=== PATIENT | female | born 2000 | race Caucasian/White ===

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

== ENCOUNTER → 2020-01-05 08:34 | Outpatient (CLI) | payer MEDICAID, SELFPAY ==
[2019-12-08 09:15] VITALS: BMI 28.7
[2020-01-05 09:00] LABS: Absolute Lymphocyte Count 2.59 X10^3/uL (0.83-4.51); Absolute Neutrophil Count 10.1 X10^3/uL (2.0-7.7); Basophil# 0.05 X10^3/uL; Basophil% 0.4 % (0-1); Eosinophil# 0.13 X10^3/uL; Eosinophils% 0.9 % (0-5); Hematocrit 35.3 % (37-47); Hemoglobin 11.6 g/dL (12.0-15.0); Lymphocyte # 2.59 X10^3/ul (4.0); Lymphocyte % 18.2 % (19-41); Mean Corp Hgb Conc 32.9 g/dL (32-36); Mean Corpuscular Hgb 29.7 pg (27.0-32.0); Mean Corpuscular Volume 90.5 fL (81-99); Mean Platelet Vol. 8.9 fl (6.2-12.0); Monocyte# 1.08 X10^3/uL; Monocyte% 7.6 % (0-10); NRBC Flagged by Analyzer 0 % (0-5); Neutrophil # 10.13 X10^3/uL (2.7-7.7); Neutrophil % 71.1 % (47-70); Platelet Count 210 K/mm3 (150-450); RBC Distribution Width SD 39.3 fl (35.1-43.9); White Blood Count 14.2 K/mm3 (4.4-11.0)
[2020-01-05 09:34] LABS: Glucose Challenge Gest 1H 50g 87 mg/dL (70-140); T4 Free Direct 0.91 ng/dL (0.76-1.46); Thyroid Stim Hormone (TSH) 2.67 uIU/mL (0.358-3.74)
== END ==
PROVIDERS: PCP Nurse Practitioner Adult Health; Referring Provider Nurse Practitioner Women's Health; Visit Provider Nurse Practitioner Women's Health
DX: Z34.90 Encounter for supervision of normal pregnancy, unspecified, unspecified trimester (principal); E03.9 Hypothyroidism, unspecified
CPT/HCPCS: 36415; 82950; 84439; 84443; 85025

== ENCOUNTER → 2020-02-16 10:46 | Outpatient (CLI) | payer MEDICAID, SELFPAY ==
[2020-02-16 10:17] VITALS: BMI 28.7
[2020-02-16 11:28] LABS: T4 Free Direct 0.92 ng/dL (0.76-1.46); Thyroid Stim Hormone (TSH) 1.05 uIU/mL (0.358-3.74)
== END ==
PROVIDERS: Obstetrics & Gynecology; PCP Nurse Practitioner Adult Health; Referring Provider Nurse Practitioner Women's Health; Visit Provider Nurse Practitioner Women's Health
DX: E03.9 Hypothyroidism, unspecified (principal)
CPT/HCPCS: 36415; 84439; 84443

== ENCOUNTER 2020-03-07 16:20 | Outpatient (CLI) | payer MEDICAID, SELFPAY ==
[2020-03-07 15:46] VITALS: BMI 28.7
[2020-03-07 16:41] VITALS: BP 129/67; PULSE 86; TEMP 36.9; O2SAT 98
[2020-03-07 16:55] VITALS: BMI 35.3
[2020-03-07 16:56] VITALS: BP 129/68; PULSE 90
[2020-03-07 17:04] LABS: Hematocrit 30.9 % (37-47); Hemoglobin 10.1 g/dL (12.0-15.0); Mean Corp Hgb Conc 32.7 g/dL (32-36); Mean Corpuscular Hgb 28.5 pg (27.0-32.0); Platelet Count 211 K/mm3 (150-450); RBC Distribution Width CV 12.3 % (11.6-14.6); RBC Distribution Width SD 39.6 fl (35.1-43.9); Red Blood Count 3.55 M/mm3 (4.2-5.4); White Blood Count 9.9 K/mm3 (4.4-11.0)
[2020-03-07 17:11] VITALS: BP 124/69; PULSE 88
[2020-03-07 17:15] LABS: International Normalized Ratio 1.1; Partial Thromboplast Time 25.5 Seconds (24.1-36.2); Prothrombin Time (Protime)PT. 13.3 SECONDS (11.7-14.9)
[2020-03-07 17:26] VITALS: BP 117/61; PULSE 86
[2020-03-07 17:34] LABS: Protein, Urine (Random) 13.7 mg/dL (<11.9); Protein:Creat Ratio 170 mg/g CRE (0-200)
[2020-03-07 17:41] LABS: AST(SGOT) 27 U/L (15-37); Alanine Aminotransfer ALT/SGPT 26 U/L (13-56); Creatinine, Serum 0.43 mg/dL (0.55-1.02); EST Glomerular Filtration Rate 199 mL/min (>60); Est Glom Filt Rate - Afr Amer 240 mL/min (>60); Estimated Creatinine Clearance 174.07 ml/min; Uric Acid 3.2 mg/dL (2.6-6.0)
[2020-03-07 17:42] VITALS: BP 125/58; PULSE 84
--- NOTE | 2020-03-07 19:54 | OB.TRI.PN ---
Progress Notes Date of Service: 03/07/20 Progress Note: Patient seen for edema and generalized malaise heart tone 1 20-1 30 moderate variability reactive no decelerations category 1 tracing [place] irregular contractions Assessment and plan patient evaluated for edema, malaise, reassuring heart tones and normal labs and negative urine protein. Follow-up in office next week as scheduled. Reviewed preeclampsia precautions Laboratory Studies: Laboratory Tests 03/07/20 03/07/20 03/07/20 Range/Units 16:53 16:53 16:53 WBC 9.9 (4.4-11.0) K/mm3 RBC 3.55 L (4.2-5.4) M/mm3 Hgb 10.1 L (12.0-15.0) g/dL Hct 30.9 L (37-47) % MCV 87.0 (81-99) fL MCH 28.5 (27.0-32.0) pg MCHC 32.7 (32-36) g/dL RDW Std Deviation 39.6 (35.1-43.9) fl RDW Coeff of Brendon 12.3 (11.6-14.6) % Plt Count 211 (150-450) K/mm3 MPV 9.0 (6.2-12.0) fl PT 13.3 (11.7-14.9) SECONDS INR 1.1 APTT 25.5 (24.1-36.2) Seconds Creatinine 0.43 L (0.55-1.02) mg/dL Estim Creat Clear Calc 174.07 ml/min Est GFR (MDRD) Af Amer 240 (>60) mL/min Est GFR (MDRD) Non-Af 199 (>60) mL/min Uric Acid 3.2 (2.6-6.0) mg/dL AST 27 (15-37) U/L ALT 26 (13-56) U/L U Random Total Protein (<11.9) mg/dL Urine Creatinine (NO RANGE EST.) mg/dL Protein/Creatinin Ratio (0-200) mg/g CRE 03/07/20 Range/Units 16:40 WBC (4.4-11.0) K/mm3 RBC (4.2-5.4) M/mm3 Hgb (12.0-15.0) g/dL Hct (37-47) % MCV (81-99) fL MCH (27.0-32.0) pg MCHC (32-36) g/dL RDW Std Deviation (35.1-43.9) fl RDW Coeff of Brendon (11.6-14.6) % Plt Count (150-450) K/mm3 MPV (6.2-12.0) fl PT (11.7-14.9) SECONDS INR APTT (24.1-36.2) Seconds Creatinine (0.55-1.02) mg/dL Estim Creat Clear Calc ml/min Est GFR (MDRD) Af Amer (>60) mL/min Est GFR (MDRD) Non-Af (>60) mL/min Uric Acid (2.6-6.0) mg/dL AST (15-37) U/L ALT (13-56) U/L U Random Total Protein 13.7 H (<11.9) mg/dL Urine Creatinine 80.80 (NO RANGE EST.) mg/dL Protein/Creatinin Ratio 170 (0-200) mg/g CRE - Problem List (1) Edema during Status: Acute Comment: Seen in triage 5?27, normal labs negative urine protein normal blood pressures. Preeclampsia precautions reviewed Multi Select Codes - Urinary/Genital Urinary/Genital CPT Codes: 71071-07 non-stress test Interp
== END 2020-03-07 18:00 | disposition home or self-care (01) ==
LOC: WPOUT 16:27 → OBT 16:27
PROVIDERS: PCP Nurse Practitioner Adult Health; Referring Provider Obstetrics & Gynecology; Visit Provider Obstetrics & Gynecology
DX: O12.00 Gestational edema, unspecified trimester (principal)
CPT/HCPCS: 36415; 59025; 59050; 82565; 82570; 84156; 84450; 84460; 84550; 85027; 85610; 85730; 99218; G0378

== ENCOUNTER 2020-03-11 19:20 | Outpatient (CLI) | payer MEDICAID, SELFPAY ==
[2020-03-11] VITALS (7 sets, daily range): BP systolic 129–141; BP diastolic 63–92; PULSE 89–98; TEMP 36.7; O2SAT 98; BMI 35.4
[2020-03-11 20:39] LABS: Hematocrit 31.8 % (37-47); Hemoglobin 10.2 g/dL (12.0-15.0); Mean Corp Hgb Conc 32.1 g/dL (32-36); Mean Corpuscular Hgb 28.3 pg (27.0-32.0); Mean Corpuscular Volume 88.3 fL (81-99); Mean Platelet Vol. 9.1 fl (6.2-12.0); Platelet Count 195 K/mm3 (150-450); RBC Distribution Width CV 12.2 % (11.6-14.6); RBC Distribution Width SD 39.5 fl (35.1-43.9); White Blood Count 9.8 K/mm3 (4.4-11.0)
[2020-03-11 20:47] LABS: ROM Internal Control Test YES-OK TO RESULT pt. (Internal QC); ROM Patient Test Negative (Negative)
--- NOTE | 2020-03-11 20:51 | OB.TRI.PN_ITS ---
Progress Notes Date of Service: 03/11/20 Progress Note: Patient presents for triage evaluation secondary to decreased movement. Upon arrival her initial 2 blood pressures were mildly elevated in the 140s over 90s. Repeat blood pressures were within normal limits in the 120s over 60s. Patient began feeling good movement when she was here. FHT: 130 Moderate variability reactive no decelerations category I tracing [place]: No regular contractions Assessment and plan: 19-year-old G1, P0 at 36 weeks 3 days with decreased movement, overall reassuring heart tones and now feeling movement reactive NST, initial elevated blood pressures so preeclampsia labs ordered and within normal limits and repeat pressures within normal limits. Negative proteinuria. Reviewed preeclampsia precautions. Reassuring maternal and status patient discharged to home to follow-up this week in the office. See problem list details for additional plan information. Laboratory Studies: Laboratory Tests 03/11/20 03/11/20 03/11/20 Range/Units 20:20 20:20 19:57 WBC 9.8 (4.4-11.0) K/mm3 RBC 3.60 L (4.2-5.4) M/mm3 Hgb 10.2 L (12.0-15.0) g/dL Hct 31.8 L (37-47) % MCV 88.3 (81-99) fL MCH 28.3 (27.0-32.0) pg MCHC 32.1 (32-36) g/dL RDW Std Deviation 39.5 (35.1-43.9) fl RDW Coeff of Brendon 12.2 (11.6-14.6) % Plt Count 195 (150-450) K/mm3 MPV 9.1 (6.2-12.0) fl PT 13.0 (11.7-14.9) SECONDS INR 1.0 APTT 26.0 (24.1-36.2) Seconds Vag Amniotic Fld Detect Negative (Negative) Multi Select Codes - Urinary/Genital Urinary/Genital CPT Codes: 71112-35 non-stress test Interp
[2020-03-11 21:02] LABS: AST(SGOT) 36 U/L (15-37); Alanine Aminotransfer ALT/SGPT 36 U/L (13-56); Creatinine, Serum 0.46 mg/dL (0.55-1.02); EST Glomerular Filtration Rate 185 mL/min (>60); Est Glom Filt Rate - Afr Amer 224 mL/min (>60); Estimated Creatinine Clearance 162.72 ml/min; Uric Acid 3.2 mg/dL (2.6-6.0)
[2020-03-11 21:03] LABS: Protein, Urine (Random) 13.2 mg/dL (<11.9); Protein:Creat Ratio 258 mg/g CRE (0-200)
== END 2020-03-11 21:20 | disposition home or self-care (01) ==
LOC: WPOUT 19:32 → WP 19:33
PROVIDERS: PCP Nurse Practitioner Adult Health; Visit Provider Obstetrics & Gynecology
DX: O36.8130 Decreased fetal movements, third trimester, not applicable or unspecified (principal); O99.89 Other specified diseases and conditions complicating pregnancy, childbirth and the puerperium; R03.0 Elevated blood-pressure reading, without diagnosis of hypertension; Z3A.36 36 weeks gestation of pregnancy
CPT/HCPCS: 36415; 59025; 59050; 82565; 82570; 84112; 84156; 84450; 84460; 84550; 85027; 85610; 85730; 99218; G0378

== ENCOUNTER → 2020-03-13 09:09 | Outpatient (CLI) | payer MEDICAID, SELFPAY ==
[2020-03-13 09:10] VITALS: BMI 35.4
[2020-03-13 09:50] LABS: Absolute Lymphocyte Count 1.49 X10^3/uL (0.83-4.51); Absolute Neutrophil Count 6.7 X10^3/uL (2.0-7.7); Basophil# 0.04 X10^3/uL; Basophil% 0.4 % (0-1); Eosinophils% 1.1 % (0-5); Hematocrit 32.8 % (37-47); Hemoglobin 10.5 g/dL (12.0-15.0); Lymphocyte # 1.49 X10^3/ul (4.0); Lymphocyte % 15.8 % (19-41); Mean Corpuscular Hgb 28.1 pg (27.0-32.0); Mean Corpuscular Volume 87.7 fL (81-99); Monocyte# 0.92 X10^3/uL; Monocyte% 9.7 % (0-10); NRBC Flagged by Analyzer 0 % (0-5); Neutrophil % 70.9 % (47-70); Platelet Count 187 K/mm3 (150-450); RBC Distribution Width CV 12.2 % (11.6-14.6); RBC Distribution Width SD 38.8 fl (35.1-43.9); Red Blood Count 3.74 M/mm3 (4.2-5.4); White Blood Count 9.5 K/mm3 (4.4-11.0)
[2020-03-13 09:58] LABS: Protein, Urine (Random) 26.6 mg/dL (<11.9); Protein:Creat Ratio 180 mg/g CRE (0-200)
[2020-03-13 10:17] LABS: ALB/GLOB Ratio 0.7 RATIO (0.9-2.4); AST(SGOT) 28 U/L (15-37); Alanine Aminotransfer ALT/SGPT 29 U/L (13-56); Albumin, Serum 2.8 g/dL (3.2-5.0); Alkaline Phosphatase 150 U/L (45-117); Anion Gap 7 (5-15); BUN 9 mg/dL (7-18); BUN/Creat Ratio 18.1 RATIO (10-20); Chloride 108 mmol/L (98-107); EST Glomerular Filtration Rate 170 mL/min (>60); Est Glom Filt Rate - Afr Amer 205 mL/min (>60); Globulin 4.1 g/dL (2.2-4.2); Glucose 110 mg/dL (74-106); Potassium 3.6 mmol/L (3.5-5.1); Protein, Total 6.9 g/dL (6.4-8.2); Sodium Level 140 mmol/L (136-145)
== END ==
PROVIDERS: PCP Nurse Practitioner Adult Health; Referring Provider Nurse Practitioner Women's Health; Visit Provider Nurse Practitioner Women's Health
DX: R51 Headache (principal)
CPT/HCPCS: 80053; 82570; 84156; 85025

== ENCOUNTER 2020-03-14 15:54 | Outpatient (CLI) | payer MEDICAID, SELFPAY ==
[2020-03-13 09:10] VITALS: BMI 35.4
[2020-03-14 16:15] VITALS: BP 127/66; PULSE 107; PULSE 97; TEMP 36.7; O2SAT 99
[2020-03-14 16:26] VITALS: BMI 35.6
[2020-03-14 16:30] VITALS: BP 125/65; PULSE 90
[2020-03-14 16:46] VITALS: BP 111/66; PULSE 102
[2020-03-14 16:51] LABS: Hematocrit 31.3 % (37-47); Hemoglobin 9.9 g/dL (12.0-15.0); Mean Corp Hgb Conc 31.6 g/dL (32-36); Mean Corpuscular Hgb 28.3 pg (27.0-32.0); Mean Corpuscular Volume 89.4 fL (81-99); Mean Platelet Vol. 9.1 fl (6.2-12.0); Platelet Count 192 K/mm3 (150-450); RBC Distribution Width CV 12.5 % (11.6-14.6); RBC Distribution Width SD 39.8 fl (35.1-43.9); White Blood Count 9.6 K/mm3 (4.4-11.0)
[2020-03-14 17:01] VITALS: BP 119/63; PULSE 92
[2020-03-14 17:03] LABS: Protein, Urine (Random) 20.3 mg/dL (<11.9); Protein:Creat Ratio 193 mg/g CRE (0-200)
[2020-03-14 17:07] LABS: AST(SGOT) 25 U/L (15-37); Alanine Aminotransfer ALT/SGPT 24 U/L (13-56); Creatinine, Serum 0.41 mg/dL (0.55-1.02); EST Glomerular Filtration Rate 213 mL/min (>60); Est Glom Filt Rate - Afr Amer 258 mL/min (>60); Estimated Creatinine Clearance 182.57 ml/min; Uric Acid 2.9 mg/dL (2.6-6.0)
[2020-03-14 17:16] VITALS: BP 116/58; PULSE 96
[2020-03-14 17:17] LABS: International Normalized Ratio 1.1; Partial Thromboplast Time 25.8 Seconds (24.1-36.2); Prothrombin Time (Protime)PT. 13.4 SECONDS (11.7-14.9)
[2020-03-14 17:33] VITALS: BP 118/65; PULSE 93
--- NOTE | 2020-03-14 19:50 | OB.TRI.HP_ITS ---
<SánchezAtiya - Last Filed: 03/15/20 08:43> - Problem List (1) 36 weeks gestation of Status: Acute (2) Hypertension affecting Status: Acute Qualifiers: Trimester: third trimester Qualified Code(s): O16.3 - Unspecified maternal hypertension, third trimester (3) Blurred vision Status: Acute History of Present Illness Date of Service: 03/14/20 Was patient seen by the physician?: Yes Reason For Visit: RULE OUT PRE-E Date of Service: 03/14/20 Final LAMBERT: 04/05/20 Gestational age: 37 Weeks and 0 Days History of Present Illness: Called in to Dr. Estevez's office reporting BPs 150s/100s with blurred vision. Had pre-e workup the week prior for new onset of hypertension. Sent to triage to rule out pre-e. Allergies amoxicillin [From Augmentin] Adverse Reaction (Intermediate, Verified 03/13/20 09:10) Diarrhea clavulanic acid [From Augmentin] Adverse Reaction (Intermediate, Verified 03/13/20 09:10) Diarrhea - Pertinent Past Medical History Medical History: Past Medical History (Last Reviewed 03/07/20 @ 15:46 by Ivana Ceballos) Anxiety Depressed Hypothyroidism Surgical History: Past Surgical History (Last Reviewed 03/07/20 @ 15:46 by Ivana Ceballos) S/P left knee surgery medial meniscus root repair Laboratory Studies: Laboratory Tests 03/14/20 03/14/20 03/14/20 Range/Units 16:45 16:30 16:30 WBC (4.4-11.0) K/mm3 RBC (4.2-5.4) M/mm3 Hgb (12.0-15.0) g/dL Hct (37-47) % MCV (81-99) fL MCH (27.0-32.0) pg MCHC (32-36) g/dL RDW Std Deviation (35.1-43.9) fl RDW Coeff of Brendon (11.6-14.6) % Plt Count (150-450) K/mm3 MPV (6.2-12.0) fl PT 13.4 (11.7-14.9) SECONDS INR 1.1 APTT 25.8 (24.1-36.2) Seconds Creatinine 0.41 L (0.55-1.02) mg/dL Estim Creat Clear Calc 182.57 ml/min Est GFR (MDRD) Af Amer 258 (>60) mL/min Est GFR (MDRD) Non-Af 213 (>60) mL/min Uric Acid 2.9 (2.6-6.0) mg/dL AST 25 (15-37) U/L ALT 24 (13-56) U/L U Random Total Protein 20.3 H (<11.9) mg/dL Urine Creatinine 105.00 (NO RANGE EST.) mg/dL Protein/Creatinin Ratio 193 (0-200) mg/g CRE 03/14/20 Range/Units 16:30 WBC 9.6 (4.4-11.0) K/mm3 RBC 3.50 L (4.2-5.4) M/mm3 Hgb 9.9 L (12.0-15.0) g/dL Hct 31.3 L (37-47) % MCV 89.4 (81-99) fL MCH 28.3 (27.0-32.0) pg MCHC 31.6 L (32-36) g/dL RDW Std Deviation 39.8 (35.1-43.9) fl RDW Coeff of Brendon 12.5 (11.6-14.6) % Plt Count 192 (150-450) K/mm3 MPV 9.1 (6.2-12.0) fl PT (11.7-14.9) SECONDS INR APTT (24.1-36.2) Seconds Creatinine (0.55-1.02) mg/dL Estim Creat Clear Calc ml/min Est GFR (MDRD) Af Amer (>60) mL/min Est GFR (MDRD) Non-Af (>60) mL/min Uric Acid (2.6-6.0) mg/dL AST (15-37) U/L ALT (13-56) U/L U Random Total Protein (<11.9) mg/dL Urine Creatinine (NO RANGE EST.) mg/dL Protein/Creatinin Ratio (0-200) mg/g CRE Review of Systems Constitutional: Denies: Chills, Fever, Weight Change Eyes: Reports: Vision Change - little spots on bottom of eye field HEENT: Denies: Head Aches, Sinus Congestion, Sinus Drainage Cardiovascular: Denies: Chest Pain, Palpitations Respiratory: Denies: Cough, Shortness of breath at rest, Sputum production Gastrointestinal: Denies: Abdominal Pain, Nausea, Vomiting Genitourinary: Denies: Dysuria Musculoskeletal: Denies: Joint Pain, Joint Tenderness Skin: Denies: Rash, Wounds Neurological: Denies: Numbness, Tingling, Focal weakness Psychiatric: Denies: Anxiety, Depression, Homicidal Ideations, Suicidal Ideations Hematologic/ Lymphatic: Denies: Easy Bruising, Easy Bleeding Physical Exam Vitals: Vital Signs Temp Pulse BP Pulse Ox 98.1 F 93 118/65 99 03/14/20 16:15 03/14/20 17:33 03/14/20 17:33 03/14/20 16:15 General: Alert, Oriented x3, No apparent distress HEENT: Atraumatic, Normocephalic. Negative for: Thyromegaly, Lymphadenopathy Cardiovascular: Regular rate, Regular Rhythm Lungs: Clear to auscultation Abdomen: Bowel Sounds Present, Gravid Neurological: Deep Tendon Reflexes 2+/4 and Symmetrical, Neuro grossly intact STAFF NURSE ANESTHETIST: Normal external genitalia. Negative for: Vulvar lesions Estimated gestational size: Appropriate for gestational size Presentation: Cephalic NST - FHR Rate Baby A Baseline: 1354 Variability:: Moderate Accelerations:: 15 x 15 Decelerations:: None NST Reactive:: Yes FHR Category:: Category I Uterine Activity:: irritability Impression/Plan A/P: at 36.6 weeks gestation here to r/o pre-e At home BPs elevated, but in triage systolic 110s-120s with diastolics 70s-80s. Vision spots at the bottom of her eye field. Denies previous vision complications Pre-E labs WNL with Plts 190, AST 25, ALT 24, total urine protein 20.3 and protein/cr ratio 193 Discussed patient with attending Dr. Borrero After normal BPs and normal labs, may discharge home Discussed vision changes in and importance of rest of hydration. To take BP after laying on her left side for 15 minutes Will follow up in office tomorrow <Lida ReyesSummer - Last Filed: 03/15/20 09:01> History of Present Illness - Pertinent Past Medical History Medical History: Past Medical History (Last Reviewed 03/07/20 @ 15:46 by Ivana Ceballos) Anxiety Depressed Hypothyroidism Surgical History: Past Surgical History (Last Reviewed 03/07/20 @ 15:46 by Ivana Ceballos) S/P left knee surgery medial meniscus root repair Laboratory Studies: Laboratory Tests 03/14/20 03/14/20 03/14/20 Range/Units 16:45 16:30 16:30 WBC (4.4-11.0) K/mm3 RBC (4.2-5.4) M/mm3 Hgb (12.0-15.0) g/dL Hct (37-47) % MCV (81-99) fL MCH (27.0-32.0) pg MCHC (32-36) g/dL RDW Std Deviation (35.1-43.9) fl RDW Coeff of Brendon (11.6-14.6) % Plt Count (150-450) K/mm3 MPV (6.2-12.0) fl PT 13.4 (11.7-14.9) SECONDS INR 1.1 APTT 25.8 (24.1-36.2) Seconds Creatinine 0.41 L (0.55-1.02) mg/dL Estim Creat Clear Calc 182.57 ml/min Est GFR (MDRD) Af Amer 258 (>60) mL/min Est GFR (MDRD) Non-Af 213 (>60) mL/min Uric Acid 2.9 (2.6-6.0) mg/dL AST 25 (15-37) U/L ALT 24 (13-56) U/L U Random Total Protein 20.3 H (<11.9) mg/dL Urine Creatinine 105.00 (NO RANGE EST.) mg/dL Protein/Creatinin Ratio 193 (0-200) mg/g CRE 03/14/20 Range/Units 16:30 WBC 9.6 (4.4-11.0) K/mm3 RBC 3.50 L (4.2-5.4) M/mm3 Hgb 9.9 L (12.0-15.0) g/dL Hct 31.3 L (37-47) % MCV 89.4 (81-99) fL MCH 28.3 (27.0-32.0) pg MCHC 31.6 L (32-36) g/dL RDW Std Deviation 39.8 (35.1-43.9) fl RDW Coeff of Brendon 12.5 (11.6-14.6) % Plt Count 192 (150-450) K/mm3 MPV 9.1 (6.2-12.0) fl PT (11.7-14.9) SECONDS INR APTT (24.1-36.2) Seconds Creatinine (0.55-1.02) mg/dL Estim Creat Clear Calc ml/min Est GFR (MDRD) Af Amer (>60) mL/min Est GFR (MDRD) Non-Af (>60) mL/min Uric Acid (2.6-6.0) mg/dL AST (15-37) U/L ALT (13-56) U/L U Random Total Protein (<11.9) mg/dL Urine Creatinine (NO RANGE EST.) mg/dL Protein/Creatinin Ratio (0-200) mg/g CRE Physical Exam Vitals: Vital Signs Temp Pulse BP Pulse Ox 98.1 F 93 118/65 99 03/14/20 16:15 03/14/20 17:33 03/14/20 17:33 03/14/20 16:15
== END 2020-03-14 17:40 | disposition home or self-care (01) ==
LOC: WPOUT 15:57 → OBT 16:05
PROVIDERS: Obstetrics & Gynecology; PCP Nurse Practitioner Adult Health; Referring Provider Obstetrics & Gynecology; Visit Provider Obstetrics & Gynecology
DX: O16.3 Unspecified maternal hypertension, third trimester (principal); O99.283 Endocrine, nutritional and metabolic diseases complicating pregnancy, third trimester; E03.9 Hypothyroidism, unspecified; Z3A.36 36 weeks gestation of pregnancy
CPT/HCPCS: 36415; 59025; 59050; 82565; 82570; 84156; 84450; 84460; 84550; 85027; 85610; 85730; 99218; G0378

== ENCOUNTER → 2020-03-15 | Outpatient (CLI) | payer MEDICAID, SELFPAY ==
[2020-03-15 09:37] VITALS: BMI 35.6
== END | disposition home or self-care (01) ==
LOC: LABSPEC 13:14
PROVIDERS: PCP Nurse Practitioner Adult Health; Referring Provider Nurse Practitioner Women's Health; Visit Provider Nurse Practitioner Women's Health
DX: Z34.90 Encounter for supervision of normal pregnancy, unspecified, unspecified trimester (principal)
CPT/HCPCS: 87081

== ENCOUNTER → 2020-03-20 09:03 | Outpatient (CLI) | payer MEDICAID, SELFPAY ==
[2020-03-15 09:37] VITALS: BMI 35.6
[2020-03-20 09:07] VITALS: BP 120/67; PULSE 103; RESP 16; TEMP 36.9; O2SAT 97; BMI 35.4
[2020-03-20] MEDS: 0.9% NaCl Peripheral Flush Adult/Peds IV (09:13)
[2020-03-20] MEDS: 0.9% NaCl IVPB Med Flush (250 mL) 15 ML IV (09:18)
[2020-03-20 11:50] VITALS: BP 99/61; PULSE 88; RESP 16
== END ==
PROVIDERS: PCP Nurse Practitioner Adult Health; Referring Provider Nurse Practitioner Women's Health; Visit Provider Nurse Practitioner Women's Health
DX: O99.019 Anemia complicating pregnancy, unspecified trimester (principal); D64.9 Anemia, unspecified; Z3A.00 Weeks of gestation of pregnancy not specified
CPT/HCPCS: 96365; 96366; J1756; J7050; A4216

== ENCOUNTER → 2020-03-26 12:11 | Outpatient (CLI) | payer MEDICAID, SELFPAY ==
[2020-03-15 09:37] VITALS: BMI 35.6
[2020-03-22 09:15] VITALS: BMI 35.4
[2020-03-26] MEDS: 0.9% NaCl IVPB Med Flush (250 mL) 15 ML IV (12:32)
[2020-03-26] MEDS: 0.9% NaCl Peripheral Flush Adult/Peds IV (12:32)
[2020-03-26 12:34] VITALS: BP 128/83; PULSE 101; RESP 16; TEMP 36.7; O2SAT 98; BMI 35.4
[2020-03-26 14:35] VITALS: BP 131/78; PULSE 87; RESP 16; O2SAT 96
== END ==
PROVIDERS: PCP Nurse Practitioner Adult Health; Referring Provider Nurse Practitioner Women's Health; Visit Provider Nurse Practitioner Women's Health
DX: O99.019 Anemia complicating pregnancy, unspecified trimester (principal); Z3A.00 Weeks of gestation of pregnancy not specified
CPT/HCPCS: 96365; 96366; J1756; J7050; A4216

== ENCOUNTER 2020-03-29 08:45 | Inpatient (IN) | payer MEDICAID, SELFPAY ==
[2020-03-26 12:34] VITALS: BMI 35.4
[2020-03-29] VITALS (102 sets, daily range): BP systolic 99–150; BP diastolic 55–95; PULSE 80–118; TEMP 36.6–37.2; O2SAT 85–100; BMI 36.3
[2020-03-29] MEDS: Lactated Ringers 1,000 ML 50 ML IV (10:00)
[2020-03-29] MEDS: Lactated Ringers 500 ML 999 ML IV ×2 (10:15→23:52)
[2020-03-29 10:22] LABS: Absolute Lymphocyte Count 1.82 X10^3/uL (0.83-4.51); Absolute Neutrophil Count 9.6 X10^3/uL (2.0-7.7); Basophil# 0.05 X10^3/uL; Basophil% 0.4 % (0-1); Eosinophils% 0.8 % (0-5); Hematocrit 36.5 % (37-47); Hemoglobin 11.5 g/dL (12.0-15.0); Lymphocyte # 1.82 X10^3/ul (4.0); Lymphocyte % 14.1 % (19-41); Mean Corp Hgb Conc 31.5 g/dL (32-36); Mean Platelet Vol. 9.8 fl (6.2-12.0); Monocyte# 1.06 X10^3/uL; Monocyte% 8.2 % (0-10); NRBC Flagged by Analyzer 0 % (0-5); Neutrophil % 74.4 % (47-70); Platelet Count 220 K/mm3 (150-450); RBC Distribution Width CV 14.1 % (11.6-14.6); RBC Distribution Width SD 42.5 fl (35.1-43.9); White Blood Count 12.9 K/mm3 (4.4-11.0)
[2020-03-29] MEDS: fentaNYL-bupivacaine (epidural) 100 ML BAG EPIDURAL ×3 (11:37→21:02)
[2020-03-29] MEDS: Ondansetron 4 MG/2 ML Vial IV ×3 (12:03→23:16)
[2020-03-29] MEDS: Oxytocin 30 units/NS 500 ml 30 UNITS/500 ML IV.SOLN IV (13:27)
--- NOTE | 2020-03-29 14:04 | PCM.HP.OB ---
- Problem List (1) Hypertension affecting Status: Acute Qualifiers: (2) Anemia affecting Status: Acute Qualifiers: (3) Edema during Status: Acute Comment: Seen in triage 5?27, normal labs negative urine protein normal blood pressures. Preeclampsia precautions reviewed (4) Hypothyroid Status: Acute Qualifiers: Comment: check labs q trimester (5) Status: Acute Qualifiers: Comment: low risk ordered. Carrier screening negative for 14 out of 14, anatomy normal (6) Supervision of normal Status: Acute Qualifiers: Comment: PRR LAMBERT 04/05/20 boy Ilan SURI not involved- Luis Armando (7) History of depression Status: Acute Comment: recommend counseling, no meds at this time History Date of Admission: 03/29/20 Final LAMBERT: 04/05/20 Gestational age: 39 Weeks and 0 Days History of this : This is a 19 year-old, at 39 weeks gestational age presents with SROM this morning meconium fluid, irregualr ctx. Medical History: Medical History (Last Reviewed 03/22/20 @ 09:15 by Ivana Ceballos) Anxiety F41.9 Depressed F32.9 Hypothyroidism E03.9 Surgical History: Surgical History (Last Reviewed 03/22/20 @ 09:15 by Ivana Ceballos) S/P left knee surgery Z98.890 medial meniscus root repair Allergies amoxicillin [From Augmentin] Adverse Reaction (Intermediate, Verified 03/26/20 12:33) Diarrhea clavulanic acid [From Augmentin] Adverse Reaction (Intermediate, Verified 03/26/20 12:33) Diarrhea Home Medications: Home Medications levothyroxine 25 mcg tablet 25 mcg PO DAILY #90 tab 12/08/19 Pnv No.103/Folic/Om3s/Fish Oil [ Gummies] 2 ea PO QHS 03/11/20 Smoking Status: Former smoker Alcohol: None Number of Fetus(es): 1 NST - FHR Rate Baby A Baseline: 140 Variability:: Moderate Accelerations:: 15 x 15 Decelerations:: None NST Reactive:: Yes FHR Category:: Category I History Past Pregnancies: Past Pregnancies Delivery Date Name GA/ Weeks Outcome Route Wt Sex Labor Length Anesthesia Delivery Location Provider FOB Labs: Mom's Labs & Results 03/29/20 03/29/20 10:00 10:00 WBC 12.9 H RBC 4.10 L Hgb 11.5 L Hct 36.5 L MCV 89.0 MCH 28.0 MCHC 31.5 L RDW Std Deviation 42.5 RDW Coeff of Brendon 14.1 Plt Count 220 MPV 9.8 Immature Gran % (Auto) 2.100 H Neut % (Auto) 74.4 H Lymph % (Auto) 14.1 L Nash % (Auto) 8.2 Eos % (Auto) 0.8 Baso % (Auto) 0.4 Absolute Neuts (auto) 9.6 H Absolute Lymphs (auto) 1.82 Nucleated RBC % 0 Blood Type A POSITIVE Antibody Screen NEGATIVE Course Did the patient receive Yes care? Labs RPR/VDRL/Syphilis Nonreactive Rubella status Immune HbSAg Negative Date Done: 11/07/19 Chlamydia Negative Gonorrhea Negative HIV/AIDS Non-Reactive Group B Strep: Negative Current Obstetrical History Gestational Diabetes No Incompetent Cervix No Infertility No IUGR No Macrosomia No Hypertension/Pre-eclampsia No Placenta Previa/Abruption No PTL/PROM No Uterine anomaly No Oligohydramnios No Polyhydramnios No Multiple gestation No Past Medical History Asthma No Diabetes No Hypertension No Heart disease No Mitral valve prolapse No Neurologic/Seizure disorder/ No Migraines Kidney disease No Liver disease No Varicosities No Clotting disorders/Hx of DVT No Thyroid Dysfunction Yes: hypothyroidism Other medical diseases No Psychiatric disorders No Major trauma No Abnormal PAP smear No Sleep apnea No Mammogram in the last 2 years No Social History Marital Status: SINGLE Hx Smoking Yes: VAPE DAILY Smoking Status Former smoker Expected Infant Delivery Method: Spontaneous Vaginal Describe any other labor & delivery plans:: LAMBERT Calculator. Estimated Delivery DateMethodCurrent WG. Current Eswyapvr28/25/66Ewpsgr93m 0dbase on 1 tm us, unsure exact LMP. Other Sjmfcstlx29/26/20LMP (Uncertain)37w 6d. Expected Delivery Route/Plan. . Labor Preferences-. labor support person: her mom [place]. pain management options preferred: epidural. cut cord/dad catch: : no. PP control planned: pill. discussed possible routes of delivery and associated risks: []. special requests: []. Specific Issue/Plans. flu vaccine: declines. tdap vaccine: given. rhogam: na. LARC form signed: yes Review of Systems Constitutional: Denies: Fever, Malaise Eyes: Denies: Blurred vision, Vision Change HEENT: Denies: Head Aches, Visual Changes Cardiovascular: Denies: Chest Pain, Palpitations Respiratory: Denies: Cough, Shortness of Breath, Wheezing Gastrointestinal: Denies: Abdominal Pain, Diarrhea, Nausea, Vomiting Genitourinary: Denies: Dysuria, Hematuria Musculoskeletal: Denies: Joint Pain, Muscle pain Skin: Denies: Lesions, Rash Neurological: Denies: Blurred vision, Focal weakness, Headaches Psychiatric: Denies: Anxiety, Depression Endocrine: Denies: Heat/ Cold Intolerance Hematologic/ Lymphatic: Denies: Easy Bruising, Easy Bleeding Physical Exam Vitals: Vital Signs Temp Pulse BP Pulse Ox 98.1 F 96 123/74 H 96 03/29/20 13:21 03/29/20 14:03 03/29/20 13:22 03/29/20 14:03 General: Alert, Cooperative, No apparent distress HEENT: Atraumatic, Normocephalic. Negative for: Thyromegaly, Lymphadenopathy Cardiovascular: Regular rate Lungs: Normal air movement Abdomen: Soft, Non Tender, Gravid Neurological: Deep Tendon Reflexes 2+/4 and Symmetrical, Neuro grossly intact. Negative for: Clonus FABRICATION MACHINE OPERATOR: Normal external genitalia. Negative for: Vulvar lesions Estimated gestational size: Appropriate for gestational size Presentation: Cephalic Assessment/Plan All Active Problems (Last Reviewed 03/22/20 @ 09:15 by Ivana Ceballos) Hypertension affecting (Acute) Anemia affecting (Acute) Edema during (Acute) Hypothyroid (Acute) (Acute) Supervision of normal (Acute) History of depression (Acute) This is a 19 year-old, at 39 weeks gestational age presents with SROM Patient presents IAL, plan expectant management for , pit PRN. Pain management: plans epidural. GBS neg. Management of any complications: none I have reviewed the [facility] and made any clinically relevant updates.
[2020-03-29] MEDS: 0.9% Saline Lock 10 ML Syringe IV ×2 (17:54→23:16)
[2020-03-29] MEDS: Amnioinfusion- 0.9% NS 1,000 ML IV.SOLN. INTRA-UTER ×2 (21:40→23:47)
[2020-03-29] MEDS: Lactated Ringers 1,000 ML 200 ML IV (23:48)
[2020-03-30] VITALS (19 sets, daily range): BP systolic 109–144; BP diastolic 58–85; PULSE 82–123; RESP 16–18; TEMP 36.6–37.2; O2SAT 97
[2020-03-30] MEDS: Ondansetron 4 MG/2 ML Vial IV (02:06)
--- NOTE | 2020-03-30 02:12 | PCM.OPRPT ---
Problem List (1) Hypertension affecting Status: Acute Qualifiers: (2) Anemia affecting Status: Acute Qualifiers: (3) Edema during Status: Acute Comment: Seen in triage 5?27, normal labs negative urine protein normal blood pressures. Preeclampsia precautions reviewed (4) Hypothyroid Status: Acute Qualifiers: Comment: check labs q trimester (5) Status: Acute Qualifiers: Comment: low risk ordered. Carrier screening negative for 14 out of 14, anatomy normal (6) Supervision of normal Status: Acute Qualifiers: Comment: PRR LAMBERT 04/05/20 boy Ilan MCCORD not involved- Luis Armando (7) History of depression Status: Acute Comment: recommend counseling, no meds at this time Vaginal Delivery Maternal Presentation: Spontaneous Rupture of Membranes 19-year-old G1, P0 at 38 weeks presents with SROM clear fluid 2 cm with no regular contractions Method of Induction: Pitocin Amniotic Membrane Rupture Type: Spontaneous at home Final LAMBERT: 04/05/20 Gestational age: 39 Weeks and 1 Days Date of Procedure: 03/30/20 Pre-Operative Diagnosis: PROM Post-Operative Diagnosis: Same Surgery/ Procedure Performed: Spontaneous Vaginal Delivery Type of Anesthesia: Epidural Description of Procedure: Patient began pushing and delivered the head in the [EMMANUEL] presentation. The head was delivered atraumatically [and a loose nuchal cord ?1 was identified and easily reduced over the infant's head]. The anterior and posterior shoulders delivered without complication followed by the rest of the and the infant was placed on the maternal abdomen. Delayed cord clamping was employed for approximately 60 seconds. Cord was clamped and cut and gentle traction was applied to the cord and the placenta delivered spontaneously immediately following it was noted to be intact with three-vessel cord. The perineum and vagina were inspected and noted to have a second-degree perineal laceration that was repaired in the usual fashion with 3-0 Vicryl Rapide. EBL was 300 cc. Patient and infant tolerated delivery well. Presentation: EMMANUEL Placental Delivery Description: Spontaneous Placenta Disposition: [facility] Cord Vessel Description: 3 Vessels Cord Entanglement: Around neck x 1, loose Estimated Blood Loss: 300 Infant A gender: Male (1 minute): 7 (5 minute): 9 Episiotomy Description: None Laceration: Perineal Extension/lac, 2nd degree Medications given after delivery: IV Pitocin Complications: None Multi Select Codes - Urinary/Genital Urinary/Genital CPT Codes: 06370 Vaginal Delivery+ PP Care([facility])
[2020-03-30] MEDS: Oxytocin 30 units/NS 500 ml 30 UNITS/500 ML IV.SOLN 334 UNITS IV (02:33)
[2020-03-30] MEDS: Naproxen 250 MG Tablet 500 MG PO ×2 (04:58→15:55)
[2020-03-30] MEDS: Levothyroxine 25 MCG TABLET PO (06:48)
--- NOTE | 2020-03-30 15:30 | CASEMGMT ---
Social Work Assessment Labor and Delivery Unit Patient Address: [address] [place] [address] Phone number: [phone] Date of Referral: 03.30.2020 Time of Referral: 628 Referred By: Dr. Marc Date of Intervention: 03.30.2020 Time of Intervention: 1529 Reason for Referral: limited support, father of baby (FOB) not involved. History obtained from: medical records and mother of baby (MOB) Mariam Romeo; MOB's mom, Virginia Romeo also present during part of conversation. Household composition: ROBEL lives with her mother, father, and younger brother. Plans to take baby to this home, and reports home is safe and adequate. Patient's parent/guardian status: MOB is 19 year old single female. FOB is Luis Armando Chandler, not currently involved. Reports were together for 1 year and 4 months. MOB reports FOB has a lying issue, concerns for substance issues, and cheated on MOB. MOB does not plan to involved FOB at this time. Baby boy Ilan Romeo is the first child for MOB and FOB, though MOB reports FOB has impregnated another woman just 4 months after MOB. Medical History: MOB is G1, P0 to 1 after delivering Ilan. No reported concerns with care. Baby was born at 39 weeks. weight 7 pounds 6 ounces. Apgars 7-9 at 1-5 minutes of life respectively. Educational Status: MOB graduated from high school. Denies any IEP in school. Reports can read, write, and understands what is read. Financial Status: ROBEL works at [employer]*. Receives help from her parents as well. Infant Supplies: MOB reports to have needed supplies including crib, car seat, clothing, diapers, wipes, bottles, and can get formula. Childcare/Caregiver(s): MOB and family. Transportation: No reported concerns. Programs/Agencies Involved: Medicaid through [facility]. Active with [facility]. Children Services/Legal Issues: None reported. Behavioral Health Issues: Mental Health History: MOB report history of depression and anxiety. Reports possible bipolar disorder and was on medication for this in the past. MOB reports has been feeling okay off the medications. History of counseling as well. Denies any history of suicidal ideation, intent, planning, or attempts. Substance Use History: MOB denies. Former tobacco smoker. Family History: Family history reported of alcohol use issues and bipolar disorder though specifics as to which family members not disclosed. Drug Screens: maternal drug screen negative on 12.08.2019. Family/Social Stressors: Stressors with FOB who MOB reports has a lying problem, untreated depression, alcohol issues and cheated on MOB. MOB denies any safety concerns but this person is not a person that MOB wants around or around the baby. Support Systems: MOB reports her family, in particular her mother are strongest supports. MOB has some close friends as well. Depression/Shaken Baby/Safe Sleeping : MOB able to give appropriate feedback on shaken baby prevention and safe sleeping. Educated MOB to mood and anxiety disorders, risk factors, and importance of seeking out help and support. MOB reports open to treatment if the need arises. ASSESSMENT: Met with MOB and then later joined by MOB's mother. MOB okay with her mother being in the room. MOB talked openly, nondefensive, pleasant. Good eye contact. Appropriate affect. Observed MOB to handle baby appropriately and gently. MOB reports to have good support from family, denies any needs or concerns in having what is needed to take care of baby, but did agree to have both a Help Me Grow and Nurse visit referrals at time of discharge. MOB's mother was encouraging MOB to accept referrals and MOB appeared to accept encouragement well. MOB's mom presented as supportive of MOB and baby. MOB accepting of information on mood and anxiety disorders. MOB able to voice coping skills in the form of self talk, reading up on negative thinking, and does also enjoy time with her horse. PLAN: MOB and baby to home at discharge. [facility] resources and mood and anxiety packet given. [facility] referral and nurse visit to be completed. -AMANDA Casarez, APPLICATIONS PROCESSOR
[2020-03-30] MEDS: Senna/Docusate Sodium 1 Tablet PO (15:56)
[2020-03-30] MEDS: Acetaminophen 500 MG Tablet 1000 MG PO (19:49)
[2020-03-30] MEDS: Prenatal Vits Tablet 1 TABLET PO (19:50)
[2020-03-31 00:20] VITALS: BP 127/68; PULSE 74; RESP 18; TEMP 36.6
[2020-03-31] MEDS: Naproxen 250 MG Tablet 500 MG PO (00:21)
[2020-03-31 04:55] VITALS: BP 123/76; PULSE 95; RESP 18; TEMP 36.6
[2020-03-31] MEDS: Acetaminophen 500 MG Tablet 1000 MG PO (05:30)
[2020-03-31] MEDS: Levothyroxine 25 MCG TABLET PO (05:31)
--- NOTE | 2020-04-03 12:36 | CASEMGMT ---
Social Work Labor and Delivery Help Me Grow referral submitted via the [facility]'s secure web based referral form. Faxed nurse visit program referral form to the [facility]. Both referrals as per mother of baby's stated consent to this group underwriter for referrals. No other services requests or indicated. -ALYSSA Casarez, MAINTENANCE OF WAY CLERK
== END 2020-03-31 06:30 | disposition home or self-care (01) | DRG 560 ==
PROVIDERS: Admitting Provider Obstetrics & Gynecology; PCP Nurse Practitioner Adult Health; Visit Provider Obstetrics & Gynecology
DX: O42.92 Full-term premature rupture of membranes, unspecified as to length of time between rupture and onset of labor (principal); O99.344 Other mental disorders complicating childbirth; F32.9 Major depressive disorder, single episode, unspecified; F41.9 Anxiety disorder, unspecified; O99.284 Endocrine, nutritional and metabolic diseases complicating childbirth; E03.9 Hypothyroidism, unspecified; Z87.891 Personal history of nicotine dependence; O99.02 Anemia complicating childbirth; D64.9 Anemia, unspecified; O77.0 Labor and delivery complicated by meconium in amniotic fluid; O16.4 Unspecified maternal hypertension, complicating childbirth; O69.81X0 Labor and delivery complicated by cord around neck, without compression, not applicable or unspecified; O70.1 Second degree perineal laceration during delivery; Z3A.39 39 weeks gestation of pregnancy; Z37.0 Single live birth
CPT/HCPCS: 59025; 59050; 85025; 86850; 86900; 86901; 99218; J1756; J7030; J7050; J7120; A4216; G0378; J2405

== ENCOUNTER → 2020-07-16 06:43 | Outpatient (CLI) | payer MEDICAID, SELFPAY ==
[2020-06-14 12:37] VITALS: BMI 36.3
--- NOTE | 2020-07-16 06:44 | MRI_ITS ---
STUDY: MRI RIGHT KNEE REASON FOR EXAM: Right lateral knee pain and swelling, medial meniscal root repair in April 2019. TECHNIQUE: Standardized fat and water weighted pulse sequences were obtained in all 3 orthogonal planes. COMPARISON: MRI images 04/02/2019 and radiographs 03/17/2019. FINDINGS: There are postoperative changes from medial meniscal repair with a complex signal alteration of the posterior horn of the medial meniscus (proton-density sagittal images 27-29), either recurrent medial meniscal tear or scarring. Normal hyaline cartilage of the medial femorotibial compartment. Normal medial femoral condyle and tibial plateau. Normal medial collateral ligamentous complex (MCL). Normal distal semimembranosus, gracilis and semitendinosus tendons. Normal lateral meniscus. Normal hyaline cartilage of the lateral femorotibial compartment. There is mild healed fracture deformity of the lateral tibial plateau (proton-density coronal images 17, 18) without residual bone edema. Normal proximal tibiofibular articulation. Normal lateral collateral (fibular) ligament. Normal popliteus tendon. Normal biceps femoris tendon. Normal anterior cruciate ligament (ACL). There is scarring of the proximal posterior cruciate ligament (T2 sagittal image 13). Normal congruent patellofemoral articulation. Normal hyaline cartilage of the patellofemoral compartment. Normal medial and lateral patellar retinaculum. Normal quadriceps tendon. Normal patellar tendon. There is postoperative scarring in Hoffa''s fat pad. There is a minimal volume of fluid in the joint. There is a small focus of synovitis anterior to the distal anterior cruciate ligament (T2 sagittal image 12) measuring 0.6 cm in AP dimension. There is postoperative scarring and micrometallic artifact in the subcutis adipose space medial to the proximal tibia. The otherwise visualized osseous structures are unremarkable. MRI/Lower Ext Joint Only (Routine) IMPRESSION: Postoperative changes of the medial meniscus with signal alteration of the posterior horn of the medial meniscus, either recurrent medial meniscal tear or scarring. Mild healed fracture deformity of the lateral tibial plateau. Scarring of the posterior cruciate ligament. Small focus of synovitis anterior to the distal anterior cruciate ligament. Electronically Signed: Ming Melgar MD at 8:45 EDT Tel , Service support ,
== END ==
PROVIDERS: PCP Nurse Practitioner Adult Health; Referring Provider Orthopaedic Surgery; Visit Provider Orthopaedic Surgery
DX: M25.561 Pain in right knee (principal)
CPT/HCPCS: 73721

== ENCOUNTER → 2020-10-25 15:30 | Outpatient (CLI) | payer MEDICAID, SELFPAY ==
[2020-10-25 16:55] LABS: HIV - WCH Non-Reactive (Nonreactive)
[2020-10-25 20:01] LABS: Chlamydia Trachomatis by PCR Negative (Negative); Neisserai gonorrhoeae by PCR Negative (Negative); Probe Check PASS; Sample Adequacy Control PASS; Specimen Processing Control PASS
[2020-10-27 16:08] LABS: HCV Quant. RNA PCR HCV Not Detected IU/mL (.)
[2020-10-29 10:53] LABS: HSV 1 IgG < 0.91 index (0.00-0.90); HSV 2 IgG < 0.91 index (0.00-0.90)
[2020-11-01 03:02] LABS: Rapid Plasmin Reagin (RPR) NONREACTIVE (NONREACTIVE)
== END ==
PROVIDERS: PCP Nurse Practitioner Adult Health; Referring Provider Nurse Practitioner Women's Health; Visit Provider Nurse Practitioner Women's Health
DX: Z11.3 Encounter for screening for infections with a predominantly sexual mode of transmission (principal)
CPT/HCPCS: 36415; 86592; 86695; 86696; 86703; 87491; 87522; 87591

== ENCOUNTER → 2020-12-27 06:23 | Outpatient (CLI) | payer OTHER, MEDICAID, SELFPAY ==
--- NOTE | 2020-12-27 06:24 | MRI_ITS ---
STUDY: MRI RIGHT KNEE REASON FOR EXAM: Lateral right knee pain after a fall 1 month ago, meniscal repair in 2019. TECHNIQUE: Standardized fat and water weighted pulse sequences were obtained in all 3 orthogonal planes. COMPARISON: Radiographs 11/22/2020, MRI images 07/16/2020 and 04/02/2019. FINDINGS: There are postoperative changes from medial meniscal repair with a small complex signal alteration of the posterior horn of the medial meniscus (proton-density sagittal images 29, 30) as on the prior study, either chronic recurrent medial meniscal tear or scarring. Normal hyaline cartilage of the medial femorotibial compartment. Normal medial femoral condyle and tibial plateau. Normal medial collateral ligamentous complex (MCL). Normal distal semimembranosus, gracilis and semitendinosus tendons. Normal lateral meniscus. Normal hyaline cartilage of the lateral femorotibial compartment. There is mild healed fracture deformity of the lateral tibial plateau (proton-density coronal images 17-19) as on the prior study. Normal proximal tibiofibular articulation. Normal lateral collateral (fibular) ligament. Normal popliteus tendon. Normal biceps femoris tendon. Normal anterior cruciate ligament (ACL). There is mild scarring of the proximal posterior cruciate ligament (T2 coronal images 12-15) without demonstrated recurrent ligament tear. Normal congruent patellofemoral articulation. Normal hyaline cartilage of the patellofemoral compartment. Normal medial and lateral patellar retinaculum. Normal quadriceps tendon. Normal patellar tendon. There is postoperative scarring in Hoffa''s fat pad. There is no joint effusion. There is a small focus of synovitis anterior to the distal anterior cruciate ligament (T2 sagittal image 13) unchanged since the prior study. There is postoperative scarring in the medial subcutis adipose space. There is a bone contusion of the medial patella (T2 coronal images 20, 29). MRI/Lower Ext Joint Only (Routine) IMPRESSION: Postoperative changes of the medial meniscus with signal alteration of the posterior horn of the medial meniscus, either chronic recurrent medial meniscal tear or scarring. Bone contusion of the medial patella. Scarring of the posterior cruciate ligament without demonstrated recurrent tear. Mild healed fracture of the lateral tibial plateau. Small focus of synovitis anterior to the distal anterior cruciate ligament without interval change. Electronically Signed: Ming Melgar MD at 9:31 EDT Tel , Service support ,
== END ==
PROVIDERS: PCP Nurse Practitioner Adult Health; Referring Provider Orthopaedic Surgery; Visit Provider Orthopaedic Surgery
DX: M25.561 Pain in right knee (principal)
CPT/HCPCS: 73721

== ENCOUNTER 2021-03-22 14:30 | Outpatient (RCR) | payer OTHER, SELFPAY ==
--- NOTE | 2021-02-08 14:52 | HP.PTEVAL_ITS ---
Patient's Visit Information ELAINA MARIN is a 20 year old F referred to Physical Therapy by Dr. Aliyah Polanco DO with a diagnosis of R knee contusion. Date of Evaluation: 02/08/21 Physical Therapist: Robbie Macias, DPT, OCS, CSCS - Visit Plan Frequency: 3x /Week Duration: 4-6 Weeks Plan: 3x/week for 4-6 for ... 1. Ensure gains full r knee flexion. 2. strength R hip, quad, HS adn lower half withotu increasing pain and progression of HEP. 3. monitor acitivity modification to help with healing, ice as needed. - Subjective Slipped and fell at work. Had horse accident in 2019 tearing some ligaments. Slip and fall was in November and PCL is loose. R outside of knee adn lateral lower leg is painful. It is intermittent but frequent. Comfortable at rest. Walking up steps and inclines and squatting make it worse. Has not tried running or hopping. Can't carry a lot of weight. Can walk about 30-60 minutes before it hurts. Sleep is not usually a problem. Worked at [employer] [place] is on Leave for son's leukemia. Basic ADLs are getting done but limited in chores and horse stalls moreso than house duties. Pivotting really works. Hobbies include horses. Has 10 month old at home and getting heavy. Dr. duke sent for PT. Getting approval for brace. No regular exercises. - Pain R lateral Pain Intensity (Out of 10): 5 Pain Intensity Range: 0, 5 - Objective Walks close to normal today. Trasnfers normal and I. Steps weak and painful R. eems unstable to patient. Tender to palpation R medial patella slightly and distal quad ligament slightly. Tightness in R HS vs L minimally. R knee AROM 0-132, L knee to 144. slight pain end range R. Strenth R knee ext 3+ pain, HS 4- pain. L 4+/5 without pain. Hip aROM B symmetrical and WFL, weakness abd and ext B 4-. Ankles are 4 strengtha dn full rOM without pain. - bounce home, + disco, + post sag test on R. - Balance Scores Functional Gait Assessment Score: 27 % Disability: 10.0000 - Goals Goal 1:: Full aROM R knee without pain Goal Time Frame: 2 Weeks Goal 2:: Santa R knee 1/10 at worst adn functional with steps without instability Goal Time Frame: 4-6 Weeks Goal 3:: Pt feel 90% better in overall condition Goal Time Frame: 4-6 Weeks Goal 4:: LEFS 65/80 Goal Time Frame: 4-6 Weeks Goal 5:: I appropriate strength program for LE. Goal Time Frame: 4-6 Weeks - Rehabilitation Potential Physical Therapy Diagnosis: R knee pain and instability effecting function Rehabilitation Potential: Fair - Anticipated Interventions Patient/Client Instruction: Educate patient on: Condition, Plan of Care For the Purpose of:: To decrease pain, To increase ROM, To improve muscle performance and motor function, To increase tolerance to activity/condition/position Therapeutic Exercise to Include: Strength training, Flexibilty training, Gait and locomotor training, Passive ROM, Active ROM For the Purpose of:: To decrease pain, To increase ROM, To improve muscle performance and motor function, To increase tolerance to activity/condition/position, To improve gait and locomotor functions Cryotherapy (ice pack, ice massage): Yes For the Purpose of:: To decrease pain, To decrease swelling/inflammation Thank you for the opportunity to evaluate your patient. For Medicare and Medicare HMO plans, please review the plan of care and approve it. It will need to be FAXED BACK to us at [phone] for Medicare purposes. For Medicare only, by signing this I certify the plan of care. Please let me know if there are questions or concerns regarding this plan of care. Physician Sig nature: Date:
--- NOTE | 2021-03-22 15:07 | HP.PTDCSUM ---
It has been my pleasure to treat ELAINA MARIN referred by Dr. Aliyah Polanco DO, with the diagnosis of R knee contusion for a total of 16 visit(s). Discharge Date: Please see the following information for a summary of their discharge status. Subjective: I am feeling pretty good. I was able to ride my horse for about 30 minutes yesterday. Moderate knee pain (5/10) during the ride but no residual pain after getting off. Muscles are sore in thighs and hips though. R lateral Pain Intensity (Out of 10): 0 % Improvement: 90 Objective/Function: Continues to make steady progress toward all stated goals. Small progressions made with loading during PRE's with good tolerance. Goal 1:: Full aROM R knee without pain Goal Progress: Goal Met Goal 2:: Santa R knee 1/10 at worst adn functional with steps without instability Goal Progress: 5/10 rare though. Goal 3:: Pt feel 90% better in overall condition Goal Progress: Goal Met Goal 4:: LEFS 65/80 Goal Progress: Goal Met Goal 5:: I appropriate strength program for LE. Goal Progress: Goal Met Plan: Re-assess with Robbie Macias DPT immediately following today's session. If there are questions or concerns regarding this patient's physical therapy, please feel free to call me at [phone]. Thank you for the referral of this patient. Sincerely, Robbie Macias, HEIDIT, OCS, CSCS
== END 2021-03-22 19:00 | disposition home or self-care (01) ==
LOC: PT 14:30
PROVIDERS: PCP Nurse Practitioner Adult Health; Referring Provider Orthopaedic Surgery; Visit Provider Orthopaedic Surgery
DX: S80.01XD Contusion of right knee, subsequent encounter (principal)
CPT/HCPCS: 97110; 97161; 97164